=== PATIENT | female | born 1990 | race Caucasian/White ===

== ENCOUNTER 2018-09-05 08:53 | Emergency (ER) | payer OTHER ==
[~2018-09-05] VITALS: Ht 162.6 cm; Wt 96.6 kg
[~2018-09-05 08:53] MED LIST: AMOX1TAB12 PO; INTESTINEX680 MG PO; KETO10TA2 PO; SULFAMETHOXAZOL1 TA3 PO; TAMS0.4C PO
== END 2018-09-05 14:29 | disposition home or self-care (01) ==
LOC: ER 08:53
DX: O21.0 Mild hyperemesis gravidarum (principal); Z34.01 Encounter for supervision of normal first pregnancy, first trimester